=== PATIENT | male | born 1970 | race Caucasian/White ===

== ENCOUNTER 2016-12-11 18:11 | Emergency (ER) | payer BC ==
--- NOTE | 2016-12-22 16:41 | ER ---
ADMIT: 12/11/2016 RM/LOC: [facility] MR#: [id number] [address] [id number] KEEGAN BRYANMICHOACANO Alvarado [address] [address] Emergency Room Report SEX: M AGE: 46 : 1970 CORRECTED: 12/12/2016 1109 DJS DATE: 12/11/2016 ADDENDUM: CHIEF COMPLAINT: Laceration to the forearm. HISTORY OF PRESENT ILLNESS: A 46-year-old male who was going to [employer] [place] a buoy and caught his arm on the fence and made laceration. A suture repair was done here in the emergency room. Please see the T-sheet for that procedure note. CLINICAL IMPRESSION: Laceration to left forearm. DAVID Whitehead / Abilio Portillo MD / modl JOB #: [id number] CC: Ham Lamas MD, Attending Physician Denver De León MD, Family Physician CORRECTED: 12/12/2016 1109 DJS
== END 2016-12-11 19:19 | disposition home or self-care (01) ==
LOC: ER 18:11
PROC: 0HQEXZZ Repair Left Lower Arm Skin, External Approach (ICD-10-PCS; principal; 2016-12-11)
DX: S51.812A Laceration without foreign body of left forearm, initial encounter (principal); Z98.890 Other specified postprocedural states; Z79.899 Other long term (current) drug therapy; Z88.6 Allergy status to analgesic agent; Z88.8 Allergy status to other drugs, medicaments and biological substances; Z23 Encounter for immunization; Y92.009 Unspecified place in unspecified non-institutional (private) residence as the place of occurrence of the external cause; W23.1XXA Caught, crushed, jammed, or pinched between stationary objects, initial encounter